=== PATIENT | male | born 1990 | race Caucasian/White ===

== ENCOUNTER 2021-11-15 17:40 | Emergency (ER) | payer SELFPAY ==
[2021-11-15 17:47] VITALS: BP 145/81; PULSE 110; RESP 18; TEMP 36.6; O2SAT 96; BMI 25.8
--- NOTE | 2021-11-15 18:06 | CTR_ITS ---
PROCEDURE INFORMATION: Exam: CT Pelvis With Contrast Exam date and time: 11/15/2021 6:43 PM Age: 31 years old Clinical indication: Pelvic pain; Additional info: R buttock abscess TECHNIQUE: Imaging protocol: Computed tomography of the pelvis with contrast. Radiation optimization: All CT scans at this facility use at least one of these dose optimization techniques: automated exposure control; mA and/or kV adjustment per patient size (includes targeted exams where dose is matched to clinical indication); or iterative reconstruction. Contrast material: OMNIPAQUE 350; Contrast volume: 100 ml; Contrast route: INTRAVENOUS (IV); COMPARISON: No relevant prior studies available. RADIATION DOSE METRICS: Total DLP (mGy-cm): 505.94 FINDINGS: Stomach and bowel: Visualized small bowel and colon are unremarkable. Appendix: No evidence of appendicitis. Intraperitoneal space: Unremarkable. No free air. No significant fluid collection. Lymph nodes: Unremarkable. No enlarged lymph nodes. Urinary bladder: Normal. No mass. Reproductive: Normal as visualized. Bones/joints: Unremarkable. No acute fracture. No dislocation. Soft tissues: Inflammation within the subcutaneous tissues of the right buttocks region without definable fluid collection. CT/CT pelvis w con* [id number] IMPRESSION: Inflammation within the subcutaneous tissues of the right buttocks region without definable fluid collection/abscess.
[2021-11-15] MEDS: lactated ringers 1,000 ML 999 ML IV ×2 (18:32→19:57)
[2021-11-15 18:35] LABS: Basophils # 0.1 10^3/uL (0.0-0.1); Basophils % 0.3 %; Eosinophils # 0.1 10^3/uL (0.0-0.8); Eosinophils % 0.6 %; Hematocrit 51.8 % (42.0-52.0); Hemoglobin 17.1 g/dL (11.7-16.6); Lymphocytes # 2.3 10^3/uL (0.8-4.8); Lymphocytes % 11.1 %; Mean Corpuscular Hemoglobin 31.8 pg (28.0-34.0); Mean Corpuscular Volume 96.5 fl (80-94); Mean Platelet Volume 9.5 fL (7.4-10.4); Monocytes # 1.4 10^3/uL (0.2-0.9); Monocytes % 6.9 %; Neutrophils # 16.51 10^3/uL (1.8-7.7); Neutrophils % 80.2 %; Nucleated Red Blood Cells % 0 %; Platelet Count 375 10^3/cmm (130-400); Red Blood Count 5.37 10^6/uL (4.1-5.3); Red Cell Distribution Width 12.5 % (12.1-15.1); White Blood Count 20.6 10^3/uL (4.0-10.0)
--- NOTE | 2021-11-15 18:38 | ED_ITS ---
HPI - Wound/Laceration General: Chief Complaint: Wound/Laceration Stated Complaint: Possible septic Time Seen by Provider: 11/15/21 18:05 Source: patient Mode of arrival: ambulatory Limitations: no limitations History of Present Illness: 31-year-old male states that he injects testosterone he states he took an injection on the fifth to his right buttocks he states that today has had a large knot with redness and pain denies any fevers patient was seen in urgent care and sent here for CT scan due to the size of the area. He has had no vomiting no diarrhea does have pain he rates a 7 out of 10. Associated symptoms: Denies chills, fever(s), nausea or vomiting Review of Systems Const: Denies: fever(s), chills, body aches or change in appetite Eyes: Denies: blurry vision or eye discomfort ENMT: Denies: throat pain or dental pain Card: Denies: chest pain Resp: Denies: dyspnea GI: Denies: abdominal pain, nausea, vomiting or diarrhea : Denies: dysuria Musc: Denies: neck pain or back pain Skin/Breast: Denies: rash Neuro: Denies: headache(s) Psych: Denies: depression Lit/Lymph: Denies: easy bruising All/Imm: Denies: urticaria PFSH ED PFSH: Medical History (Updated 11/15/21 @ 19:29 by Manpreet Drummond MD) No pertinent past medical history Social History (Updated 11/15/21 @ 18:42 by Manpreet Drummond MD) Substance/Drug Use: never Physical Exam Const: COMMON NORMALS: no acute distress, patient oriented x3 and healthy appearing HENMT: COMMON NORMALS: normocephalic and atraumatic HEAD & SCALP: normocephalic and atraumatic Eye: COMMON NORMALS: conjunctivae normal CONJUNCTIVA: Yes conjunctivae normal Neck/C-Spine: COMMON NORMALS: full ROM and supple Chest: COMMONS NORMALS: normal inspection of the chest Resp: COMMON NORMALS: normal respiratory effort Cardio: COMMON NORMALS: regular rate and No murmurs present (Cardio) RATE: regular rate GI: COMMON NORMALS: Normal to inspection, nondistended, normoactive bowel sounds present, Soft to palpation, non-tender and no masses PALPATION: Yes Soft to palpation Back/Pelvis: OTHER: Area of warmth to touch along with tenderness to right buttocks no obvious fluctuance noted. Extremity: COMMON NORMALS: normal to inspection and full ROM Neuro: COMMON NORMALS: patient oriented x3, moves all extremities and no focal motor deficits Psych: COMMON NORMALS: mental status grossly normal, Normal thought process present and cooperative THOUGHT PROCESS: Normal thought process present Skin: COMMON NORMALS: no rashes or lesions noted and no wounds GENERAL SKIN EXAM: no rashes or lesions noted Course Vital Signs: Vital signs: Vital Signs Temperature 97.9 F 11/15/21 17:47 Pulse Rate 91 11/15/21 19:31 Respiratory Rate 17 11/15/21 19:31 Blood Pressure 122/72 11/15/21 19:31 Pulse Oximetry 98 11/15/21 19:31 Oxygen Delivery Me thod 11/15/21 19:31 MDM - Wound/Laceration Medical Decision Making Patient presents here with cellulitis to his buttocks he does have an elevated white count CT showed no abscess patient was seen by general surgeon Dr. Lynch in the ER patient is wanting to go home surgeon felt it was appropriate to send him home on oral antibiotics as well with close follow-up he is return if worsening did give him a dose of IV vancomycin here he does understand if it worsens at all he is to return. Lab Data : 11/15/21 18:15 11/15/21 18:[address] 11/15/21 18:06 IMPRESSION: Inflammation within the subcutaneous tissues of the right buttocks region without definable fluid collection/abscess. Laboratory Results WBC 20.6 10^3/uL (4.0-10.0) H 11/15/21 18:15 RBC 5.37 10^6/uL (4.1-5.3) H 11/15/21 18:15 Hgb 17.1 g/dL (11.7-16.6) H 11/15/21 18:15 Hct 51.8 % (42.0-52.0) 11/15/21 18:15 MCV 96.5 fl (80-94) H 11/15/21 18:15 MCH 31.8 pg (28.0-34.0) 11/15/21 18:15 MCHC 33.0 g/dL (30.0-36.0) 11/15/21 18:15 RDW 12.5 % (12.1-15.1) 11/15/21 18:15 Plt Count 375 10^3/cmm (130-400) 11/15/21 18:15 MPV 9.5 fL (7.4-10.4) 11/15/21 18:15 Neut % (Auto) 80.2 % 11/15/21 18:15 Lymph % (Auto) 11.1 % 11/15/21 18:15 Real % (Auto) 6.9 % 11/15/21 18:15 Eos % (Auto) 0.6 % 11/15/21 18:15 Baso % (Auto) 0.3 % 11/15/21 18:15 Neut # (Auto) 16.51 10^3/uL (1.8-7.7) H 11/15/21 18:15 Lymph # (Auto) 2.3 10^3/uL (0.8-4.8) 11/15/21 18:15 Real # (Auto) 1.4 10^3/uL (0.2-0.9) H 11/15/21 18:15 Eos # (Auto) 0.1 10^3/uL (0.0-0.8) 11/15/21 18:15 Baso # (Auto) 0.1 10^3/uL (0.0-0.1) 11/15/21 18:15 Nucleated RBC % (auto) 0 % 11/15/21 18:15 Nucleated RBCs # 0.0 /100WBC 11/15/21 18:15 Sodium 135 mmol/L (136-145) L 11/15/21 18:15 Potassium 3.8 mmol/L (3.5-5.1) 11/15/21 18:15 Chloride 97 mmol/L (98-107) L 11/15/21 18:15 Carbon Dioxide 27 mmol/L (22-29) 11/15/21 18:15 Anion Gap 14.8 (5-19) 11/15/21 18:15 BUN 5 mg/dL (6-20) L 11/15/21 18:15 Creatinine 0.7 mg/dL (0.7-1.2) 11/15/21 18:15 GFR Calculation 129.9 mL/min (90-130) 11/15/21 18:15 Glucose 104 mg/dL (65-115) 11/15/21 18:15 Calculated Osmolality 278 mOsm/kg (285-295) L 11/15/21 18:15 Calcium 9.1 mg/dL (8.5-10.5) 11/15/21 18:15 Total Bilirubin 0.2 mg/dL (0.15-1.2) 11/15/21 18:15 AST 16 U/L (0-40) 11/15/21 18:15 ALT 23 U/L (0-41) 11/15/21 18:15 Alkaline Phosphatase 126 U/L (40-130) 11/15/21 18:15 Total Protein 7.5 g/dL (6.6-8.7) 11/15/21 18:15 Albumin 3.6 g/dL (3.5-5.2) 11/15/21 18:15 Globulin 3.9 g/dL (1.3-4.6) 11/15/21 18:15 Discharge Plan Discharge Patient Disposition: Home Clinical Impression: Cellulitis Condition: Stable Prescriptions: New Augmentin 500-125 mg tablet 1 tab PO BID Qty: 14 0RF Discharge Orders: Discharge ED (Routine); Ordered 11/15/21 Ordered By: Manpreet Drummond Referrals: Bar Bob MD [Primary Care Provider] - Discharge Diet: Advance as tolerated Discharge Activity: Resume usual activity Patient Instructions: Cellulitis (ED) Coding Level of Care Code ED Security Delivery Specialist for Chg Fwd Exam Comprehensive
[2021-11-15] MEDS: iohexol 350 mg/mL 100 mL Btl IV (18:47)
[2021-11-15 18:48] LABS: Alanine Aminotransferase 23 U/L (0-41); Albumin Level 3.6 g/dL (3.5-5.2); Alkaline Phosphatase 126 U/L (40-130); Anion Gap 14.8 (5-19); Aspartate Amino Transferase 16 U/L (0-40); Blood Urea Nitrogen 5 mg/dL (6-20); Calcium 9.1 mg/dL (8.5-10.5); Carbon Dioxide 27 mmol/L (22-29); Chloride 97 mmol/L (98-107); Globulin 3.9 g/dL (1.3-4.6); Glomerular Filtration Rate 129.9 mL/min (90-130); Glucose 104 mg/dL (65-115); Osmolality Calculated 278 mOsm/kg (285-295); Potassium 3.8 mmol/L (3.5-5.1); Sodium 135 mmol/L (136-145); Total Bilirubin 0.2 mg/dL (0.15-1.2); Total Protein 7.5 g/dL (6.6-8.7)
[2021-11-15] MEDS: HYDROmorphone 1 mg/mL INJ 1 mL 0.5 MG IVP (18:58)
[2021-11-15] MEDS: ondansetron 2 mg/ML SDV 2 mL 4 MG IVP (18:58)
[2021-11-15] MEDS: vancomycin 1,000 MG in sodium chloride 0.9% 250 ML 250 MG IV (18:58)
--- NOTE | 2021-11-15 19:15 | PC.NURSE ---
assumed care of patient from Jabari FRANCIS at this time.
[2021-11-15 19:31] VITALS: BP 122/72; PULSE 91; RESP 17; O2SAT 98
--- NOTE | 2021-11-15 19:39 | PM.CONSULT ---
Providers/Reason For Consult Consulting Physician/Specialty*: General surgery/Shreya Reason for Consult*: Right gluteal abscess abscess Primary Care Provider: Bar Bob MD History of Present Illness History of Present Illness Hermilo Otero is a 31 year old male He injected himself with a testosterone on Thursday. On he started having chills and worsening pain in the right buttock. Today the pain was getting worse and he decided to seek medical attention. Denies any medical or surgical problems in the past. Denies any problems with his immune system. He does not smoke right now. Review of Systems Narrative: 10 point review of systems is negative except as per HPI 10 point review of systems is negative except as per HPI Medications/Allergies Home Medications Medication Instructions Recorded Confirmed Last Taken Type amoxicillin 500 mg-potassium 1 tab PO BID #14 tabs 11/15/21 Unknown Rx clavulanate 125 mg tablet (Augmentin) Allergies Allergy/AdvReac Type Severity Reaction Status Date / Time No Known Allergies Allergy Unverified 11/15/21 17:08 Current Medications Generic Name Dose Route Start Last Admin Trade Name Freq PRN Reason Stop Dose Admin Lactated Ringer's 1,000 mls @ 999 mls/hr 11/15/21 18:15 11/15/21 18:32 Lactated Ringers IV 11/15/21 20:15 999 mls/hr .Q1H1M EKATERINA Administration PFSH Acute PFSH: Medical History (Updated 11/15/21 @ 19:29 by Manpreet Drummond MD) No pertinent past medical history Social History (Updated 11/15/21 @ 18:42 by Manpreet Drummond MD) Substance/Drug Use: never Vitals/I&O/Wt Last Vital Signs Temp 97.9 F 11/15/21 17:47 Pulse 91 11/15/21 19:31 Resp 17 11/15/21 19:31 BP 122/72 11/15/21 19:31 Pulse Ox 98 11/15/21 19:31 O2 Del Method 11/15/21 19:31 Weight last 48 hrs Weight 180 lb Physical Exam Narrative: General: No acute distress Psych: [AAOx3] Eyes: [sclerae are white] Head/ENT: [normocephalic, symmetric] CV: [regular] pulse, [tachychardic], no JVD Lungs: [symmetrical chest rise] Abdomen: [soft, ND] Ext: [no obvious traumatic deformities] Skin: warm. 5 x 5 cm area of cellulitis on the right buttock, tender to palpation. No fluctuation. Data : 11/15/21 18:15 11/15/21 18:15 Micro: Microbiology 11/15/21 18:24 Blood Culture - Preliminary Blood SPECIMEN COLLECTED 11/15/21 18:15 Blood Culture - Preliminary Blood SPECIMEN COLLECTED Other data: CT scan was no evidence of an abscess. A&P Assessment and plan (1) Cellulitis: Plan No evidence of an abscess at this time. The patient lives not far away from the hospital. I think it is safe to prescribe oral antibiotics and discharge the patient home. I explained that if his condition deteriorates, he needs to come back to the hospital or to see his primary care provider. He does not have a primary care provider, so his option will be to come back to the hospital if his condition does not improve in 2 days. Final decision to admit or discharge home will be up to a medical team. As the patient does not have primary care provider, some kind of follow-up need to be arranged, including possible follow-up in the emergency room in case his condition does not improve. I would recommend Augmentin for 7 to 10 days. Coding Level of Care Code Acute Labor Arbitrator Hearing Office for Jovany Kwan Diagnoses Cellulitis L03.90
[2021-11-15 19:50] VITALS: O2SAT 100
--- NOTE | 2021-11-15 19:58 | PC.NURSE ---
d/c paperwork reviewed with patient, rx given, awaiting fluids to complete prior to leaving facility.
--- NOTE | 2021-11-15 20:29 | PC.NURSE ---
patient states the whole reason we came in is to have the testosterone level we need that done . dr carlton notified.
== END 2021-11-15 21:00 | disposition home or self-care (01) ==
PROVIDERS: Family Medicine; Emergency Provider Emergency Medicine; PCP Family Medicine
DX: L03.317 Cellulitis of buttock (principal)
CPT/HCPCS: 12345; 36415; 72193; 80053; 85025; 87040; 96365; 96375; 99285; J1170; J2405; J3370; J7050; Q9967

== ENCOUNTER 2023-08-26 11:26 | Observation (INO) | payer BC, MEDICAID, SELFPAY ==
[2023-08-26 11:49] VITALS: BP 136/88; PULSE 86; RESP 20; TEMP 36.8; O2SAT 95
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
--- NOTE | 2023-08-26 12:10 | PC.NURSE ---
this nurse assumed pt care at 1210.
[2023-08-26 12:35] LABS: Basophils % 0.2 %; Eosinophils # 0.1 10^3/uL (0.0-0.8); Eosinophils % 0.5 %; Hematocrit 44.7 % (37-53); Lymphocytes # 2.2 10^3/uL (0.8-4.8); Mean Corpuscular HGB Conc 33.6 g/dL (30-55); Mean Corpuscular Hemoglobin 30.9 pg (27-33); Mean Platelet Volume 9.8 fL (7.4-10.4); Monocytes # 1.3 10^3/uL (0.2-0.9); Monocytes % 7.3 %; Neutrophils # 13.49 10^3/uL (1.8-7.7); Neutrophils % 78.5 %; Nucleated Red Blood Cells % 0 %; Platelet Count 248 10^3/cmm (157-399); Red Blood Count 4.86 10^6/uL (3.85-5.65); Red Cell Distribution Width 12.4 % (12.1-15.1); White Blood Count 17.18 10^3/uL (3.29-11.43)
[2023-08-26 12:47] VITALS: BP 137/81; PULSE 88; RESP 16; O2SAT 96
[2023-08-26] MEDS: vancomycin 1,000 MG in sodium chloride 0.9% 250 ML 250 MG IV (12:55)
[2023-08-26 14:39] LABS: Anion Gap 14.9 (5-19); Blood Urea Nitrogen 12 mg/dL (6-20); Calcium 8.9 mg/dL (8.5-10.5); Carbon Dioxide 24 mmol/L (22-29); Chloride 104 mmol/L (98-107); Creatinine Clr Calc Pharmacy 124.1181; Glomerular Filtration Rate 96.6 mL/min (90-130); Glucose 97 mg/dL (65-115); Osmolality Calculated 288 mOsm/kg (285-295); Potassium 3.9 mmol/L (3.5-5.1); Sodium 139 mmol/L (136-145)
--- NOTE | 2023-08-26 14:39 | US_ITS ---
WS: [id number] ULTRASOUND SOFT TISSUE INDICATION: LEFT forearm redness TECHNIQUE: Ultrasound soft tissue FINDINGS: Ultrasound soft tissue LEFT forearm area of concern. Normal underlying subcutaneous soft ti ssue and intramuscular tissue in the area of concern. No fluid collection. No underlying abnormalitie s. US/US soft tissue/extremity [id number] IMPRESSION: Normal exam
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
[2023-08-26 14:46] VITALS: BP 130/68; PULSE 74; RESP 16; O2SAT 95
[2023-08-26 15:29] VITALS: BMI 28.3
[2023-08-26 15:37] VITALS: BP 131/69; PULSE 71; RESP 16; TEMP 36.8; O2SAT 96
[2023-08-26 16:00] VITALS: BP 122/62; PULSE 88; RESP 17; TEMP 37.1; O2SAT 94
[2023-08-26] MEDS: piperacillin-tazobactam 3.375 GM in sodium chloride 0.9% (plus) 50 ML IV ×2 (16:03→23:27)
[2023-08-26 20:00] VITALS: BP 162/90; PULSE 88; RESP 18; TEMP 37.4; O2SAT 96
[2023-08-26] MEDS: vancomycin 1,250 MG/250 ML PIGGYBACK 250 MG IV (21:13)
[2023-08-26] MEDS: acetaminophen 325 mg Tablet 650 MG PO (22:07)
[2023-08-27] VITALS: BP 165/69; PULSE 86; RESP 16; TEMP 37.4; O2SAT 94
[2023-08-27 04:00] VITALS: BP 125/76; PULSE 70; RESP 16; TEMP 36.4; O2SAT 93
[2023-08-27] MEDS: vancomycin 1,250 MG/250 ML PIGGYBACK 250 MG IV ×3 (04:35→20:29)
[2023-08-27 05:31] LABS: Basophils % 0.3 %; Eosinophils # 0.2 10^3/uL (0.0-0.8); Eosinophils % 1.9 %; Hematocrit 45.1 % (37-53); Lymphocytes # 2.1 10^3/uL (0.8-4.8); Lymphocytes % 17.4 %; Mean Corpuscular HGB Conc 33.7 g/dL (30-55); Mean Corpuscular Hemoglobin 31.2 pg (27-33); Mean Corpuscular Volume 92.6 fl (82-101); Mean Platelet Volume 9.9 fL (7.4-10.4); Monocytes % 8.4 %; Neutrophils # 8.47 10^3/uL (1.8-7.7); Neutrophils % 71.7 %; Nucleated Red Blood Cells % 0 %; Platelet Count 228 10^3/cmm (157-399); Red Blood Count 4.87 10^6/uL (3.85-5.65); Red Cell Distribution Width 12.5 % (12.1-15.1); White Blood Count 11.81 10^3/uL (3.29-11.43)
[2023-08-27 05:54] LABS: Anion Gap 16.8 (5-19); Blood Urea Nitrogen 10 mg/dL (6-20); Calcium 8.4 mg/dL (8.5-10.5); Carbon Dioxide 22 mmol/L (22-29); Chloride 107 mmol/L (98-107); Creatinine Clr Calc Pharmacy 128.0395; Glomerular Filtration Rate 96.6 mL/min (90-130); Glucose 126 mg/dL (65-115); Osmolality Calculated 295 mOsm/kg (285-295); Potassium 3.8 mmol/L (3.5-5.1); Sodium 142 mmol/L (136-145)
[2023-08-27] MEDS: piperacillin-tazobactam 3.375 GM in sodium chloride 0.9% (plus) 50 ML IV ×3 (06:10→21:52)
[2023-08-27 08:00] VITALS: BP 123/68; PULSE 70; RESP 17; TEMP 37; O2SAT 95
[2023-08-27 12:00] VITALS: BP 125/73; PULSE 89; RESP 16; TEMP 37.1; O2SAT 96
[2023-08-27] MEDS: ketorolac 30 mg/mL INJ 15 MG IVP ×2 (12:17→19:49)
[2023-08-27 16:16] VITALS: BP 113/73; PULSE 81; RESP 15; TEMP 36.9; O2SAT 95
--- NOTE | 2023-08-27 19:18 | P.PN_ITS ---
Subjective 2 Subjective: He still having significant pain and swelling in the left forearm. Last night he peeled off the Telfa dressing and large portion of the slow came off of the base of the wound. Vitals/I&O/Wt Last Vital Signs Temp 98.5 F 08/27/23 16:16 Pulse 81 08/27/23 16:16 Resp 15 08/27/23 16:16 BP 113/73 08/27/23 16:16 Pulse Ox 95 08/27/23 16:16 O2 Del Method Room Air 08/27/23 16:16 08/27/23 08/27/23 08/27/23 06:59 14:59 22:59 Intake Total 550 / 970 540 / 540 Balance 550 / 970 540 / 540 Weight last 48 hrs Weight 86.183 kg Weight 89.471 kg Weight 87.09 kg Physical Exam 2 Const: COMMON NORMALS: patient oriented x3 and alert GENERAL APPEARANCE: c ooperative ORIENTATION/CONSCIOUSNESS: Yes awake HENMT: COMMON NORMALS: oropharynx normal Neck/C-Spine: COMMON NORMALS: no JVD Resp: COMMON NORMALS: normal respiratory effort and clear to auscultation bilaterally AUSCULTATION: clear to auscultation bilaterally Cardio: COMMON NORMALS: no JVD, regular rhythm, S1 normal heart sound present, S2 normal heart sound present and No murmurs present (Cardio) RHYTHM: regular rhythm HEART SOUNDS: S1 normal heart sound present and S2 normal heart sound present GI: COMMON NORMALS: Normal to inspection, nondistended, normoactive bowel sounds present, Soft to palpation and non-tender PALPATION: Yes Soft to palpation Extremity: COMMON NORMALS: no joint enlargement and no pedal edema OTHER: Moderate area of swelling surrounding the ulcerated wound left mid to distal posteromedial forearm. Neuro: COMMON NORMALS: patient oriented x3 and moves all extremities S ENSORIUM/ORIENTATION: Yes alert Skin: COMMON NORMALS: no rashes or lesions noted GENERAL SKIN EXAM: no rashes or lesions noted Data 08/27/23 04:58 08/27/23 04:58 Micro: Microbiology 08/26/23 16:38 Blood Culture - Preliminary Blood NEGATIVE TO DATE 08/26/23 16:46 Blood Culture - Preliminary Blood NEGATIVE TO DATE 08/26/23 15:45 Gram Stain - Final Arm - Left Wound Culture - Preliminary 07/17/24 17:17 Anaerobic Culture - Preliminary Arm - Left A&P Assessment and plan (1) Wound infection: Reviewed vitals, CBC, BMP, official ultrasound. No abscess or collection on ultrasound. Leukocytosis with improving. Still significant erythema, swelling with moderate to large area of cellulitis of the left forearm surrounding the wound. Continue IV antibiotic management given the large extent of the wound, lack of improvement so far. Risk of failure of oral antibiotic treatment. Reviewed blood culture, negative. Reviewed anaerobic wound culture, no anaerobes so far. Reviewed aerobic culture, rare gram-negative rods, few white blood cells. Pending. Reassess blood counts. Reassess chemistry with risk of kidney injury with vancomycin, Zosyn combination. Discussed with case filler. Added IV Toradol for pain control which did not respond to Tylenol. Avoiding opioids if possible due to risks. (2) Cellulitis: Persists, symptomatic. Continue IV antibiotics as above Attestations 2 Medical Necessity Statement*: Continue admission for assessment of management of large area of cellulitis, so far unimproved, requiring IV antibiotics with risk of failure of treatment, progression of infection, worsening localized infection and/or sepsis and distant spread. Diagnoses Wound infection T14.8XXA; L08.9 Cellulitis L03.90
[2023-08-27 20:00] VITALS: BP 132/77; PULSE 80; RESP 16; TEMP 36.7; O2SAT 93
[2023-08-27 20:24] LABS: Vancomycin Trough 11.8 ug/mL (10-15)
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
[2023-08-28] VITALS: BP 143/73; PULSE 71; RESP 16; TEMP 36.4; O2SAT 95
[2023-08-28 04:00] VITALS: BP 150/77; PULSE 68; RESP 17; TEMP 36.7; O2SAT 93
[2023-08-28 05:51] LABS: Basophils # 0.1 10^3/uL (0.0-0.1); Basophils % 0.5 %; Eosinophils # 0.3 10^3/uL (0.0-0.8); Eosinophils % 3.1 %; Hematocrit 46.5 % (37-53); Lymphocytes # 1.9 10^3/uL (0.8-4.8); Lymphocytes % 19.3 %; Mean Corpuscular Hemoglobin 30.3 pg (27-33); Mean Corpuscular Volume 94.7 fl (82-101); Mean Platelet Volume 9.7 fL (7.4-10.4); Monocytes # 0.8 10^3/uL (0.2-0.9); Monocytes % 8.6 %; Neutrophils # 6.67 10^3/uL (1.8-7.7); Neutrophils % 68.1 %; Nucleated Red Blood Cells % 0 %; Platelet Count 244 10^3/cmm (157-399); Red Blood Count 4.91 10^6/uL (3.85-5.65); Red Cell Distribution Width 12.4 % (12.1-15.1); White Blood Count 9.79 10^3/uL (3.29-11.43)
[2023-08-28] MEDS: vancomycin 1,250 MG/250 ML PIGGYBACK 250 MG IV (06:12)
[2023-08-28] MEDS: ketorolac 30 mg/mL INJ 15 MG IVP (06:14)
[2023-08-28 06:37] LABS: Sodium 139 mmol/L (136-145)
[2023-08-28 06:38] LABS: Anion Gap 16.2 (5-19); Blood Urea Nitrogen 10 mg/dL (6-20); Calcium 8.6 mg/dL (8.5-10.5); Carbon Dioxide 20 mmol/L (22-29); Chloride 107 mmol/L (98-107); Creatinine Clr Calc Pharmacy 144.0444; Glomerular Filtration Rate 110.7 mL/min (90-130); Glucose 121 mg/dL (65-115); Osmolality Calculated 288 mOsm/kg (285-295); Potassium 4.2 mmol/L (3.5-5.1)
[2023-08-28] MEDS: piperacillin-tazobactam 3.375 GM in sodium chloride 0.9% (plus) 50 ML IV (07:27)
[2023-08-28 07:45] VITALS: BP 119/68; PULSE 60; RESP 17; TEMP 36.7; O2SAT 93
[2023-08-28] MEDS: lidocaine 1% INJ 20 mL 80 ML INJECTION (12:53)
[2023-08-28] MEDS: morphine 4 mg/mL SDV 1 mL 2 MG IVP (12:54)
[2023-08-28] MEDS: silver sulfadiazine cream 1% 50 gm 1 APPLIC TOPICAL (13:17)
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
[2023-08-28 14:56] VITALS: BP 119/68; PULSE 60; RESP 17; TEMP 36.7; O2SAT 93
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
--- NOTE | 2023-08-28 19:15 | PC.NURSE ---
Late Entry from 08/28/231914. Dr. Balderas would like the patient to receive a tetanus shot. Called patient at this time and asked him to follow up with the [facility] this week for a Tetanus shot. Patient stated that he would.
== END 2023-08-28 14:57 | disposition home or self-care (01) ==
LOC: ER 12:07 → MEDSURG 15:34
PROVIDERS: Admitting Provider Internal Medicine; Emergency Provider Emergency Medicine; Visit Provider Internal Medicine
DX: T65.91XA Toxic effect of unspecified substance, accidental (unintentional), initial encounter (principal); T22.612A Corrosion of second degree of left forearm, initial encounter; Y93.9 Activity, unspecified; Y92.9 Unspecified place or not applicable; Y99.9 Unspecified external cause status; Z87.891 Personal history of nicotine dependence; L03.90 Cellulitis, unspecified
CPT/HCPCS: 16020; 36415; 76882; 80048; 80202; 85025; 87040; 87070; 87075; 87186; 87205; 96365; 96366; 96367; 96375; 99285; G0378; J1885; J2270; J2543; J3370; J7050

== ENCOUNTER 2024-01-31 00:24 | Emergency (ER) | payer SELFPAY ==
[2024-01-31 00:27] VITALS: BP 165/93; PULSE 72; RESP 18; TEMP 36.4; O2SAT 96; BMI 28.4
--- NOTE | 2024-01-31 01:32 | W.ED.DENTAL ---
HPI - Dental/Oral General: Chief complaint: Dental/Oral Stated complaint: severe dental pain Left side swelling Time Seen by Provider: 01/31/24 00:37 History of Present Illness: 33-year-old male patient with a broken tooth on the left upper side, molar. He says it has been broken for quite some time, but started hurting this morning. He was on a trip to [place] today, and has been hurting all day. He says if water is touching it, it feels better for just a second. Otherwise the pain is intolerable. He is walking in the room pacing [id number] in pain Related Data Previous Rx's Medication Instructions Recorded acetaminophen 650 mg 650 mg PO Q8H PRN pain #30 tabs 08/28/23 tablet,extended release silver sulfadiazine 1 % topical 1 applic topical BID #50 grams 08/28/23 cream (SSD) amoxicillin 875 mg-potassium 1 tab PO BID #20 tabs 01/31/24 clavulanate 125 mg tablet hydrocodone 5 mg-acetaminophen 325 1 tab PO Q8H PRN pain #7 tabs 01/31/24 mg tablet ketorolac 10 mg tablet 10 mg PO TID PRN pain #10 tabs 01/31/24 Allergies Allergy/AdvReac Type Severity Reaction Status Date / Time No Known Allergies Allergy Verified 01/31/24 00:32 [facility] ED PFSH: Medical History No pertinent past medical history Social History Smoking and tobacco/nicotine status: former use of tobacco/nicotine Alcohol intake: current Substance/Drug Use: never Physical Exam HENMT: COMMON NORMALS: normocephalic, atraumatic and Normal external nose present HEAD & SCALP: normocephalic and atraumatic FACE & SINUS: normal facial exam, sinuses nontender and face symmetric NOSE: Normal external nose present and Normal nares present TEETH & GINGIVA: Yes abnormal tooth and associated gingiva OTHER: Left upper molar, back molar, broken. Exposed pulp, mild swelling. No abscess Chest: CHEST: Yes Symmetrical chest wall rise Resp: COMMON NORMALS: normal respiratory effort and No retractions Cardio: COMMON NORMALS: regular rate and regular rhythm RATE: regular rate RHYTHM: regular rhythm Course Vital Signs: Vital signs: Vital Signs Temperature 97.6 F 01/31/24 00:27 Pulse Rate 72 01/31/24 00:27 Respiratory Rate 18 01/31/24 00:27 Blood Pressure 165/93 01/31/24 00:27 Pulse Oximetry 96 01/31/24 00:27 Oxygen Delivery Me thod Room Air 01/31/24 00:27 MDM - Dental/Oral Medical Decision Making Fractured tooth. Pain medication, antibiotic coverage. Dental follow-up. No radiology studies performed this visit Discharge Plan Discharge Patient Disposition: Home Clinical Impression: Toothache, Fracture of tooth Condition: Stable Prescriptions: New hydrocodone-acetaminophen 5-325 mg tablet 1 tab PO Q8H PRN (Reason: pain) Qty: 7 0RF ketorolac 10 mg tablet 10 mg PO TID PRN (Reason: pain) Qty: 10 0RF amoxicillin-pot clavulanate 875-125 mg tablet 1 tab PO BID Qty: 20 0RF No Action SSD 1 % Cream 1 applic topical BID Qty: 50 2RF acetaminophen 650 mg tablet extended release 650 mg PO Q8H PRN (Reason: pain) Qty: 30 0RF Discharge Orders: Discharge ED (Routine); Ordered 01/31/24 Ordered By: Rohan Long Patient Instructions: Opioid Safety, Pain Management, Toothache (ED) Activity Restrictions/Additional Instructions: Pain medication as directed. You may alternate these. Antibiotics as directed as well. See your dentist as soon as possible. Call on Thursday. Coding Level of Care Code ED Web Application Dev Specialist for Jovany Kwan
[2024-01-31] MEDS: ketorolac 60 mg/2 mL INJ IM (01:36)
[2024-01-31] MEDS: oxyCODONE-APAP 5-325 mg Tablet 2 TAB PO (01:37)
[2024-01-31] MEDS: lidocaine 2% viscous 15 mL UDC 5 ML MUCOUS MEM (01:48)
== END 2024-01-31 01:49 | disposition home or self-care (01) ==
PROVIDERS: Emergency Provider Emergency Medicine
DX: S02.5XXA Fracture of tooth (traumatic), initial encounter for closed fracture (principal); Z87.891 Personal history of nicotine dependence; X58.XXXA Exposure to other specified factors, initial encounter
CPT/HCPCS: 96372; 99284; J1885

== ENCOUNTER 2024-02-01 03:38 | Emergency (ER) | payer SELFPAY ==
[2024-02-01 03:53] VITALS: BP 137/84; PULSE 62; RESP 18; TEMP 36.5; O2SAT 96; BMI 28.4
[2024-02-01 04:21] VITALS: RESP 21
[2024-02-01] MEDS: ketorolac 60 mg/2 mL INJ IM (04:21)
[2024-02-01] MEDS: oxyCODONE-APAP 5-325 mg Tablet 2 TAB PO (04:21)
[2024-02-01] MEDS: lidocaine 2% viscous 15 mL UDC 5 ML MUCOUS MEM (04:26)
[2024-02-01] MEDS: amoxicillin-clav 875-125 mg Tablet 1 TAB PO (04:30)
--- NOTE | 2024-02-01 04:43 | ED_ITS ---
HPI - Dental/Oral General: Chief complaint: Dental/Oral Stated complaint: dental pain Time Seen by Provider: 02/01/24 03:53 History of Present Illness: 33-year-old male patient presenting with the same toothache he presented with yesterday morning. He was seen by me. He was unable to get his prescriptions filled prescribed to him by me yesterday morning. He states the pharmacy was closed. He does state that the Toradol shot he was given yesterday morning helped significantly, but had not noticed any significant pain reduction with other treatments. No fever. No vomiting. Related Data Previous Rx's Medication Instructions Recorded acetaminophen 650 mg 650 mg PO Q8H PRN pain #30 tabs 08/28/23 tablet,extended release silver sulfadiazine 1 % topical 1 applic topical BID #50 grams 08/28/23 cream (SSD) amoxicillin 875 mg-potassium 1 tab PO BID #20 tabs 01/31/24 clavulanate 125 mg tablet hydrocodone 5 mg-acetaminophen 325 1 tab PO Q8H PRN pain #7 tabs 01/31/24 mg tablet ketorolac 10 mg tablet 10 mg PO TID PRN pain #10 tabs 01/31/24 Allergies Allergy/AdvReac Type Severity Reaction Status Date / Time No Known Allergies Allergy Verified 02/01/24 03:57 PFSH ED PFSH: Medical History No pertinent past medical history Social History Smoking and tobacco/nicotine status: former use of tobacco/nicotine Alcohol intake: current Substance/Drug Use: never Physical Exam HENMT: COMMON NORMALS: normocephalic, atraumatic and Normal external nose present HEAD & SCALP: normocephalic and atraumatic FACE & SINUS: normal facial exam, sinuses nontender and face symmetric NOSE: Normal external nose present and Normal nares present TEETH & GINGIVA: Yes abnormal tooth and associated gingiva OTHER: Left upper molar, back molar, broken. Exposed pulp, mild swelling. No abscess Chest: CHEST: Yes Symmetrical chest wall rise Resp: COMMON NORMALS: normal respiratory effort and No retractions Cardio: COMMON NORMALS: regular rate and regular rhythm RATE: regular rate RHYTHM: regular rhythm Course Vital Signs: Vital signs: Vital Signs Temperature 97.7 F 02/01/24 03:53 Pulse Rate 62 02/01/24 03:53 Respiratory Rate 21 H 02/01/24 04:21 Blood Pressure 137/84 02/01/24 03:53 Pulse Oximetry 96 02/01/24 03:53 Oxygen Delivery Me thod Room Air 02/01/24 03:53 MDM - Dental/Oral Medical Decision Making Patient given shot of Toradol, Augmentin, Percocet. He has prescriptions at the pharmacy to fill later this morning for hydrocodone, Toradol, Augmentin. He is encouraged to follow-up with a dentist this week. No radiology studies performed this visit Discharge Plan Discharge Patient Disposition: Home Clinical Impression: Toothache Fracture of tooth Qualifiers: Encounter type: initial encounter Fracture type: closed Qualified Code(s): S02.5XXA - Fracture of tooth (traumatic), initial encounter for closed fracture Condition: Stable Prescriptions: No Action hydrocodone-acetaminophen 5-325 mg tablet 1 tab PO Q8H PRN (Reason: pain) Qty: 7 0RF ketorolac 10 mg tablet 10 mg PO TID PRN (Reason: pain) Qty: 10 0RF amoxicillin-pot clavulanate 875-125 mg tablet 1 tab PO BID Qty: 20 0RF SSD 1 % Cream 1 applic topical BID Qty: 50 2RF acetaminophen 650 mg tablet extended release 650 mg PO Q8H PRN (Reason: pain) Qty: 30 0RF Discharge Orders: Discharge ED (Routine); Ordered 02/01/24 Ordered By: Rohan Long Patient Instructions: Toothache (ED), Opioid Safety, Pain Management Coding Level of Care Code ED Communications Equipment Operator for Jovany Kwan
== END 2024-02-01 04:48 | disposition home or self-care (01) ==
PROVIDERS: Emergency Provider Emergency Medicine
DX: S02.5XXA Fracture of tooth (traumatic), initial encounter for closed fracture (principal); Z87.891 Personal history of nicotine dependence; X58.XXXA Exposure to other specified factors, initial encounter
CPT/HCPCS: 96372; 99284; J1885